=== PATIENT | female | born 1970 | race Caucasian/White ===

== ENCOUNTER 2023-07-23 13:33 | Emergency (ER) | payer BC ==
[~2023-07-23] VITALS: Ht 165.1 cm; Wt 86.2 kg
[2023-07-23 14:13] VITALS: BP 154/90; PULSE 96; RESP 15; TEMP 98.3; O2SAT 98
[2023-07-23 15:37] VITALS: BP 124/70; PULSE 80; RESP 18; TEMP 98.3; O2SAT 98
== END 2023-07-23 15:37 | disposition home or self-care (01) ==
LOC: MED 13:33
DX: R55 Syncope and collapse (principal); R42 Dizziness and giddiness; J45.909 Unspecified asthma, uncomplicated; I10 Essential (primary) hypertension; Z98.890 Other specified postprocedural states
CPT/HCPCS: 93005; 99283